=== PATIENT | female | born 1995 | race Two or more races ===

== ENCOUNTER → 2019-11-29 12:38 | Outpatient (BNVA) | payer BC, SELFPAY | PROVIDERS: Family Provider Nurse Practitioner Family; PCP Nurse Practitioner Family; Visit Provider Nurse Practitioner Family | DX: R05 Cough (principal); J06.9 Acute upper respiratory infection, unspecified | CPT/HCPCS: 87804 ==

== ENCOUNTER → 2020-07-14 10:10 | Outpatient (BNVA) | payer BC, SELFPAY | PROVIDERS: Family Provider Nurse Practitioner Family; PCP Family Medicine; Visit Provider Counselor Professional | DX: F33.2 Major depressive disorder, recurrent severe without psychotic features (principal); F41.1 Generalized anxiety disorder; F43.12 Post-traumatic stress disorder, chronic; F60.9 Personality disorder, unspecified | CPT/HCPCS: 90791 ==

== ENCOUNTER → 2020-08-04 07:41 | Outpatient (BNVA) | payer SELFPAY | PROVIDERS: Family Provider Nurse Practitioner Family; PCP Family Medicine; Visit Provider Counselor Professional | DX: F43.12 Post-traumatic stress disorder, chronic (principal); F41.1 Generalized anxiety disorder; F33.1 Major depressive disorder, recurrent, moderate | CPT/HCPCS: 90834 ==

== ENCOUNTER → 2020-08-07 13:52 | Outpatient (BNVA) | payer BC, SELFPAY | PROVIDERS: Family Provider Nurse Practitioner Family; PCP Family Medicine; Visit Provider Psychiatry & Neurology Psychiatry | DX: F33.1 Major depressive disorder, recurrent, moderate (principal); F41.1 Generalized anxiety disorder; F43.12 Post-traumatic stress disorder, chronic | CPT/HCPCS: 99204 ==

== ENCOUNTER 2021-05-16 12:33 | Emergency (ER) | payer SELFPAY ==
[2021-05-16] VITALS (7 sets, daily range): BP systolic 135–156; BP diastolic 83–110; PULSE 98–145; RESP 15–21; TEMP 37; O2SAT 96–99; BMI 36.2
--- NOTE | 2021-05-16 12:43 | XR_ITS ---
WS: [id number] Exam: XR chest 1V portable [id number] Date/Time of Exam: 05/16/2021 12:47 PM Reason For Exam: dyspnea/cough Comparison 07/02/2019. The lungs are clear and fully expanded. Normal cardiomediastinal silhouette. No pleural effusions. He aled fractures of the posterior right seventh and eighth ribs. Remaining bony structures are unremark able. XR/XR chest 1V portable [id number] IMPRESSION: 1. No acute cardiopulmonary finding.
--- NOTE | 2021-05-16 12:44 | ECG_ITS ---
[facility] Test Date: 2021-05-16 Pat Name: Rosalino Thomas Department: Room: Gender: Female Auto Technician: : 1995 Requested By: Marek Arteaga Order Number: [id number] Shravan MD: LORENA ALVAREZ Measurements Intervals [employer] Rate: 145 P: 63 CO: 140 QRS: 64 QRSD: 74 T: 49 QT: 267 QTc: 416 Interpretive Statements SINUS TACHYCARDIA, POSSIBLE ATRIAL FLUTTER POSSIBLE ANTERIOR MYOCARDIAL INFARCTION [30 ms Q WAVE IN V3/V4, OR R < 0.2 mV IN V4], PROBABLY OLD ABNORMAL RHYTHM ECG No previous ECG available for comparison Electronically Signed On 05-16-2021 21:07:43 CDT by LORENA ALVAREZ [email or web address] [email or web address] [email or web address]/[id number] f
--- NOTE | 2021-05-16 12:57 | ED_ITS ---
HPI - Arrhythmia/Palpitations General: Chief Complaint: Arrhythmia/Palpitations Stated Complaint: HIGH HR Time Seen by Provider: 05/16/21 12:43 History of Present Illness: HPI narrative: 25-year-old female presents emergency room with rapid heart rate. 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 She does have mildly elevated blood pressure and heart rate while here but not to that level. She has had some chest discomfort. She not previously had any cardiac history. MD complaint: heart racing Onset (ago): minute(s) Duration: constant Severity: mild Context: occurred during rest Associated symptoms: Reports short of breath; Deny anxiety, cough, diaphoresis, muscle cramps, nausea, paresthesias, pre- syncope, sense of impending doom, syncope or vomiting Review of Systems Const: Denies: diaphoresis ENMT: Denies: throat pain, ear or mastoid pain, nasal discharge or nasal congestion Card: Denies: syncope or pre-syncope Resp: Reports: dyspnea; Denies: productive cough or non-productive cough GI: Denies: nausea or vomiting : Denies: flank pain, difficulty voiding, dysuria, urinary frequency or urinary urgency Musc: Denies: muscle cramps Skin/Breast: Denies: rash or pruritus Psych: Denies: anxiety PFSH ED PFSH: Social History Smoking and tobacco status: current every day smoker cigarettes Packs smoked per day: 0.25 Years cigarettes smoked: 4 Quit status (tobacco): has tried quititng Number of times tried to quit tobacco: 1 Second hand smoke exposure: No Alcohol intake: never Current gender identity: Female Physical Exam Const: COMMON NORMALS: no acute distress GENERAL APPEARANCE: cooperative and comfortable ORIENTATION/CONSCIOUSNESS: Yes awake, Yes oriented to person, Yes oriented to place and Yes oriented to time HENMT: COMMON NORMALS: normocephalic, atraumatic and hearing grossly normal bilaterally HEAD & SCALP: normocephalic and atraumatic Neck/C-Spine: COMMON NORMALS: no JVD Resp: COMMON NORMALS: normal respiratory effort, No retractions, No use of accessory muscles and clear to auscultation bilaterally AUSCULTATION: clear to auscultation bilaterally Cardio: COMMON NORMALS: no JVD, regular rhythm and No murmurs present (Cardio) RATE: tachycardic RHYTHM: regular rhythm GI: COMMON NORMALS: Soft to palpation and No hepatosplenomegaly present AUSCULTATION: Yes normoactive bowel sounds PALPATION: Yes Soft to palpation, No Tenderness to palpation present (GI), No Guarding due to palpation present (GI) and Yes No hepatosplenomegaly present Extremity: COMMON NORMALS: normal to inspection, capillary refill normal, no clubbing, cyanosis or edema, no calf tenderness and no pedal edema Neuro: SENSORIUM/ORIENTATION: Yes oriented to person, Yes oriented to place and Yes oriented to time Skin: COMMON NORMALS: no rashes or lesions noted GENERAL SKIN EXAM: no rashes or lesions noted Course Vital Signs: Vital signs: Vital Signs Temperature 98.6 F 05/16/21 12:40 Pulse Rate 98 05/16/21 16:32 Respiratory Rate 18 05/16/21 16:32 Blood Pressure 135/91 05/16/21 16:32 Pulse Oximetry 97 05/16/21 16:32 MDM - Arrhythmia/Palpitations MDM Narrative: Medical decision making narrative: Reviewed EKG and labs on the chart. Patient appears to be in sinus tachycardia working to discharge her home on metoprolol 25 mg once daily of extended release. She should continue her lisinopril encourage her to follow-up with her primary care doctor within the next week to reevaluate blood pressure she will also need a Holter monitor likely. Avoid any stimulants. Return if has further problems. Lab Data: Labs: Lab Results 05/16/21 05/16/21 05/16/21 Range/Units 13:10 13:10 13:10 WBC 12.6 H (4.0-10.0) 10^3/ uL RBC 4.81 (4.1-5.3) 10^6/u L Hgb 13.2 (11.5-15.3) g/dL Hct 40.2 (37.0-47.0) % MCV 83.6 (81-99) fl MCH 27.4 L (28.0-34.0) pg MCHC 32.8 (30.0-36.0) g/dL RDW 13.2 (12.1-15.1) % Plt Count 221 (130-400) 10^3/c mm MPV 11.5 H (7.4-10.4) fL Neut % (Auto) 77.0 % Lymph % (Auto) 17.7 % [place] % (Auto) 4.0 % Eos % (Auto) 0.4 % Baso % (Auto) 0.6 % Neut # (Auto) 9.68 H (1.8-7.7) 10^3/u L Lymph # (Auto) 2.2 (0.8-4.8) 10^3/u L [place] # (Auto) 0.5 (0.2-0.9) 10^3/u L Eos # (Auto) 0.1 (0.0-0.8) 10^3/u L Baso # (Auto) 0.1 (0.0-0.1) 10^3/u L Nucleated RBC % (a uto) 0 % Nucleated RBCs # 0.0 /100WBC Sodium 142 (136-145) mmol/L Potassium 3.6 (3.5-5.1) mmol/L Chloride 104 (98-107) mmol/L Carbon Dioxide 21 L (22-29) mmol/L Anion Gap 20.6 H (5-19) BUN 9 (6-20) mg/dL Creatinine 0.7 (0.5-0.9) mg/dL GFR Calculation 101.1 (90-130) mL/min Glucose 174 H (65-115) mg/dL Calculated Osmolal ity 297 H (285-295) mOsm/k g Calcium 9.0 (8.5-10.5) mg/dL Total Bilirubin 0.3 (0.15-1.2) mg/dL AST 22 (0-32) U/L ALT 25 (0-33) U/L Alkaline Phosphata se 120 H (35-105) IU/L Creatine Kinase 80 (26-192) U/L Troponin T Baselin e 6 (0-10) ng/L Troponin T 120 Min [place] (0-10) ng/L Delta Troponin T (0-10) ABS# Total Protein 6.5 L (6.6-8.7) g/dL Albumin 4.3 (3.5-5.2) g/dL Globulin 2.2 (1.3-4.6) g/dL TSH (0.27-4.20) uIU/ mL Urine Color (Yellow) Urine Appearance (CLEAR) Urine pH (5-7) Ur Specific Gravit y (1.005-1.030) Urine Protein (Negative) Urine Glucose (UA) (Normal) Urine Ketones (Negative) Urine Blood (Negative) Urine Nitrate (Negative) Urine Bilirubin (Negative) Urine Urobilinogen (Negative) mg/dL Ur Leukocyte Ingrid ase (Negative) Urine RBC (0-2) /hpf Urine WBC (0-5) /hpf Ur Squamous Epith Cells (0-5) /hpf Amorphous Sediment Urine Bacteria (NONE) /hpf Urine Mucus /hpf Nasal/Oral COVID-1 9 PCR SARS-CoV-2 Ag (Rap id) (Negative) 05/16/21 05/16/21 05/16/21 Range/Units 13:26 13:55 13:55 WBC (4.0-10.0) 10^3/ uL RBC (4.1-5.3) 10^6/u L Hgb (11.5-15.3) g/dL Hct (37.0-47.0) % MCV (81-99) fl MCH (28.0-34.0) pg MCHC (30.0-36.0) g/dL RDW (12.1-15.1) % Plt Count (130-400) 10^3/c mm MPV (7.4-10.4) fL Neut % (Auto) % Lymph % (Auto) % [place] % (Auto) % Eos % (Auto) % Baso % (Auto) % Neut # (Auto) (1.8-7.7) 10^3/u L Lymph # (Auto) (0.8-4.8) 10^3/u L [place] # (Auto) (0.2-0.9) 10^3/u L Eos # (Auto) (0.0-0.8) 10^3/u L Baso # (Auto) (0.0-0.1) 10^3/u L Nucleated RBC % (a uto) % Nucleated RBCs # /100WBC Sodium (136-145) mmol/L Potassium (3.5-5.1) mmol/L Chloride (98-107) mmol/L Carbon Dioxide (22-29) mmol/L Anion Gap (5-19) BUN (6-20) mg/dL Creatinine (0.5-0.9) mg/dL GFR Calculation (90-130) mL/min Glucose (65-115) mg/dL Calculated Osmolal ity (285-295) mOsm/k g Calcium (8.5-10.5) mg/dL Total Bilirubin (0.15-1.2) mg/dL AST (0-32) U/L ALT (0-33) U/L Alkaline Phosphata se (35-105) IU/L Creatine Kinase (26-192) U/L Troponin T Baselin e (0-10) ng/L Troponin T 120 Min [place] (0-10) ng/L Delta Troponin T (0-10) ABS# Total Protein (6.6-8.7) g/dL Albumin (3.5-5.2) g/dL Globulin (1.3-4.6) g/dL TSH (0.27-4.20) uIU/ mL Urine Color Yellow (Yellow) Urine Appearance Clear (CLEAR) Urine pH 5 (5-7) Ur Specific Gravit y 1.020 (1.005-1.030) Urine Protein Trace (Negative) Urine Glucose (UA) Norm (Normal) Urine Ketones 1+ H (Negative) Urine Blood Neg (Negative) Urine Nitrate Negative (Negative) Urine Bilirubin 1+ H (Negative) Urine Urobilinogen Norm (Negative) mg/dL Ur Leukocyte Ingrid ase Negative (Negative) Urine RBC None (0-2) /hpf Urine WBC 0-4 H (0-5) /hpf Ur Squamous Epith Cells 25-40 H (0-5) /hpf Amorphous Sediment Not Reportable Urine Bacteria 1+ H (NONE) /hpf Urine Mucus Trace /hpf Nasal/Oral COVID-1 9 PCR Not detected SARS-CoV-2 Ag (Rap id) Negative (Negative) 05/16/21 05/16/21 Range/Units 15:10 15:52 WBC (4.0-10.0) 10^3/ uL RBC (4.1-5.3) 10^6/u L Hgb (11.5-15.3) g/dL Hct (37.0-47.0) % MCV (81-99) fl MCH (28.0-34.0) pg MCHC (30.0-36.0) g/dL RDW (12.1-15.1) % Plt Count (130-400) 10^3/c mm MPV (7.4-10.4) fL Neut % (Auto) % Lymph % (Auto) % [place] % (Auto) % Eos % (Auto) % Baso % (Auto) % Neut # (Auto) (1.8-7.7) 10^3/u L Lymph # (Auto) (0.8-4.8) 10^3/u L [place] # (Auto) (0.2-0.9) 10^3/u L Eos # (Auto) (0.0-0.8) 10^3/u L Baso # (Auto) (0.0-0.1) 10^3/u L Nucleated RBC % (a uto) % Nucleated RBCs # /100WBC Sodium (136-145) mmol/L Potassium (3.5-5.1) mmol/L Chloride (98-107) mmol/L Carbon Dioxide (22-29) mmol/L Anion Gap (5-19) BUN (6-20) mg/dL Creatinine (0.5-0.9) mg/dL GFR Calculation (90-130) mL/min Glucose (65-115) mg/dL Calculated Osmolal ity (285-295) mOsm/k g Calcium (8.5-10.5) mg/dL Total Bilirubin (0.15-1.2) mg/dL AST (0-32) U/L ALT (0-33) U/L Alkaline Phosphata se (35-105) IU/L Creatine Kinase (26-192) U/L Troponin T Baselin e (0-10) ng/L Troponin T 120 Min [place] 6.00 (0-10) ng/L Delta Troponin T 0 (0-10) ABS# Total Protein (6.6-8.7) g/dL Albumin (3.5-5.2) g/dL Globulin (1.3-4.6) g/dL TSH 1.95 (0.27-4.20) uIU/ mL Urine Color (Yellow) Urine Appearance (CLEAR) Urine pH (5-7) Ur Specific Gravit y (1.005-1.030) Urine Protein (Negative) Urine Glucose (UA) (Normal) Urine Ketones (Negative) Urine Blood (Negative) Urine Nitrate (Negative) Urine Bilirubin (Negative) Urine Urobilinogen (Negative) mg/dL Ur Leukocyte Ingrid ase (Negative) Urine RBC (0-2) /hpf Urine WBC (0-5) /hpf Ur Squamous Epith Cells (0-5) /hpf Amorphous Sediment Urine Bacteria (NONE) /hpf Urine Mucus /hpf Nasal/Oral COVID-1 9 PCR SARS-CoV-2 Ag (Rap id) (Negative) Discharge Plan Discharge Patient Disposition: Home Clinical Impression: HTN (hypertension), Sinus tachycardia Condition: Stable Prescriptions: New metoprolol succinate 25 mg tablet extended release 24 hr 25 mg PO DAILY Qty: 30 RF: 0 No Action norgestimate-ethinyl estradiol [Tri-Sprintec (28)] 0.18/0.215/0.25 mg-35 mcg (28) tablet 1 tab PO DAILY RF: 0 Tylenol Extra Strength 500 mg Tablet 1,000 mg PO Q4H PRN (Reason: Pain) RF: 0 pantoprazole 40 mg tablet,delayed release (DR/EC) 40 mg PO DAILY RF: 0 lisinopril 10 mg tablet 10 mg PO BID RF: 0 ibuprofen 200 mg Tablet 400 mg PO Q4H PRN (Reason: Pain) RF: 0 ondansetron 4 mg tablet,disintegrating 4 mg PO Q4H PRN (Reason: Nausea And Vomiting) RF: 0 Onglyza 2.5 mg tablet 2.5 mg PO QAM RF: 0 Discharge Orders: Discharge ED (Routine); Ordered 05/16/21 Ordered By: Marek Espinoza Referrals: Marek Espinoza, [Primary Care Provider] - Discharge Diet: Usual diet Discharge Activity: Resume usual activity Patient Instructions: Opioid Safety Activity Restrictions/Additional Instructions: Follow up wiht your primary care doctor within the next week. Coding Level of Care Code ED Patent Chemist for Misty Fwd Exam Comprehensive
[2021-05-16 13:12] LABS: Basophils # 0.1 10^3/uL (0.0-0.1); Basophils % 0.6 %; Eosinophils # 0.1 10^3/uL (0.0-0.8); Eosinophils % 0.4 %; Hematocrit 40.2 % (37.0-47.0); Hemoglobin 13.2 g/dL (11.5-15.3); Lymphocytes # 2.2 10^3/uL (0.8-4.8); Lymphocytes % 17.7 %; Mean Corpuscular HGB Conc 32.8 g/dL (30.0-36.0); Mean Corpuscular Hemoglobin 27.4 pg (28.0-34.0); Mean Corpuscular Volume 83.6 fl (81-99); Mean Platelet Volume 11.5 fL (7.4-10.4); Monocytes # 0.5 10^3/uL (0.2-0.9); Neutrophils # 9.68 10^3/uL (1.8-7.7); Nucleated Red Blood Cells % 0 %; Platelet Count 221 10^3/cmm (130-400); Red Blood Count 4.81 10^6/uL (4.1-5.3); Red Cell Distribution Width 13.2 % (12.1-15.1); White Blood Count 12.6 10^3/uL (4.0-10.0)
[2021-05-16] MEDS: ondansetron 2 mg/ML SDV 2 mL 4 MG IVP (13:13)
[2021-05-16] MEDS: sodium chloride 0.9% 1,000 ML 999 ML IV (13:14)
--- NOTE | 2021-05-16 13:20 | CT_ITS ---
WS: [id number] Exam: CT angio chest PE protcl [id number] Date/Time of Exam: 05/16/2021 3:03 PM Reason For Exam: tachycardia/dyspnea DLP: 645.[address] scans at [facility] use at least one of these dose optimization techniques: automat ed exposure control; mA and/or kV adjustment per patient size (includes targeted exams where dose is matched to clinical indication); or iterative reconstruction. CT angiography of the chest. No sign of acute PE. The thoracic aorta is normal in caliber. No mediastinal or hilar lymphadenopathy seen. No pleural or pericardial effusion. The lungs are clear and fully expanded. CT sections the up per abdomen are unremarkable. No destructive bone lesions are seen. The chest wall is intact. CT/CT angio chest PE protcl [id number] IMPRESSION: 1. No sign of acute PE or other significant finding in the chest.
[2021-05-16 13:36] LABS: Alanine Aminotransferase 25 U/L (0-33); Albumin Level 4.3 g/dL (3.5-5.2); Alkaline Phosphatase 120 IU/L (35-105); Anion Gap 20.6 (5-19); Aspartate Amino Transferase 22 U/L (0-32); Blood Urea Nitrogen 9 mg/dL (6-20); Carbon Dioxide 21 mmol/L (22-29); Chloride 104 mmol/L (98-107); Creatine Phosphokinase 80 U/L (26-192); Globulin 2.2 g/dL (1.3-4.6); Glomerular Filtration Rate 101.1 mL/min (90-130); Glucose 174 mg/dL (65-115); Osmolality Calculated 297 mOsm/kg (285-295); Potassium 3.6 mmol/L (3.5-5.1); Sodium 142 mmol/L (136-145); Total Bilirubin 0.3 mg/dL (0.15-1.2); Total Protein 6.5 g/dL (6.6-8.7)
[2021-05-16 13:41] LABS: Troponin(5th) Baseline 6 ng/L (0-10)
[2021-05-16 14:11] LABS: Add Urine Microscopic? YES; Bilirubin Urine 1+ (Negative); Blood Urine Neg (Negative); Glucose Urine UA Norm (Normal); Ketones Urine 1+ (Negative); Leukocyte Esterase Urine Negative (Negative); Nitrate Urine Negative (Negative); Protein Urine Trace (Negative); Urine Appearance Clear (CLEAR); Urine Color Yellow (Yellow); Urobilinogen Urine Norm (Negative); pH Urine 5 (5-7)
[2021-05-16 14:12] LABS: Add Urine Culture? No; Bacteria Urine 1+ /hpf; Mucus Urine TRACE /hpf; Squamous Epithelial Cell Urine 25-40 /hpf (0-5); WBC Urine 0-4 /hpf (0-5)
[2021-05-16 14:16] LABS: SARS Covid-2 Antigen Negative (Negative)
--- NOTE | 2021-05-16 14:44 | ECG_ITS ---
[facility] Test Date: 2021-05-16 Pat Name: Rosalino Thomas Department: Room: Gender: Female Cook Box Filler: : 1995 Requested By: Marek Arteaga Order Number: [id number] Reading MD: LORENA ALVAREZ Measurements Intervals [place] Rate: 100 P: 5 MI: 165 QRS: 40 QRSD: 75 T: 29 QT: 318 QTc: 410 Interpretive Statements SINUS TACHYCARDIA ABNORMAL RHYTHM ECG No previous ECG available for comparison Electronically Signed On 05-16-2021 21:09:53 CDT by LORENA ALVAREZ [id number]
[2021-05-16] MEDS: iohexol 350 mg/mL 100 mL Btl IV (15:14)
[2021-05-16] MEDS: metoprolol tartrate 25 mg Tablet PO (15:59)
[2021-05-16] MEDS: metoprolol tartrate 1 mg/1 mL SDV 5 mL 5 MG IVP (16:00)
[2021-05-16 16:48] LABS: Thyroid Stimulating Hormone 1.95 uIU/mL (0.27-4.20)
[2021-05-16 16:51] LABS: Troponin 5 2HR Delta 0 ABS# (0-10)
--- NOTE | 2021-05-17 10:09 | DCPLANNER ---
construction site manager had message to schedule a 48 hour halter monitor for patient. construction site manager faxed signed order to heart care, who will call patient with appointment information.
[2021-05-17 15:44] LABS: Coronavirus Test Green County Not Detected
--- NOTE | 2021-05-22 07:49 | DCPLANNER ---
Patient has a follow up appointment scheduled for Saturday, May 29, 2021 at 1:00 at [facility]. Clinic will call patient with appointment information.
--- NOTE | 2021-06-08 13:33 | DCPLANNER ---
Patient had a follow up appointment scheduled for 05.29.21 with heart care for a halter monitor - patient did attend appointment.
== END 2021-05-16 16:32 | disposition home or self-care (01) ==
PROVIDERS: Emergency Provider Family Medicine; PCP Family Medicine
DX: R00.0 Tachycardia, unspecified (principal); I10 Essential (primary) hypertension; F17.210 Nicotine dependence, cigarettes, uncomplicated
CPT/HCPCS: 71045; 71275; 80053; 81001; 82550; 84443; 84484; 85025; 87426; 87635; 93005; 96361; 96374; 96375; 99284; J2405; J3490; J7030; Q9967

== ENCOUNTER 2021-10-05 12:07 | Outpatient (CLI) | payer BC, SELFPAY ==
[2021-10-05 12:12] VITALS: BP 146/107; PULSE 101; RESP 16; TEMP 36.7; O2SAT 99; BMI 32.5
[2021-10-05 13:01] VITALS: BP 125/79; PULSE 100; RESP 16; TEMP 36.5; O2SAT 99
[2021-10-05 14:01] VITALS: BP 143/101; PULSE 97; RESP 16; TEMP 36.6; O2SAT 97
== END 2021-10-05 12:08 | disposition home or self-care (01) ==
LOC: OPS 12:10
PROVIDERS: PCP Nurse Practitioner Family; Visit Provider Nurse Practitioner Family
DX: U07.1 COVID-19 (principal)
CPT/HCPCS: 96365

== ENCOUNTER → 2023-05-29 12:43 | Outpatient (BNVA) | payer SELFPAY | PROVIDERS: PCP Nurse Practitioner Family; Visit Provider Emergency Medicine | DX: S69.91XA Unspecified injury of right wrist, hand and finger(s), initial encounter (principal); X58.XXXA Exposure to other specified factors, initial encounter | CPT/HCPCS: 73130 ==